=== PATIENT | female | born 1995 | race Caucasian/White ===

== ENCOUNTER 2021-11-28 11:21 | Emergency (ER) | payer OTHER ==
[~2021-11-28] VITALS: Ht 165.1 cm; Wt 79.4 kg
[2021-11-28 13:15] VITALS: BP 121/79
== END 2021-11-28 13:16 | disposition home or self-care (01) ==
LOC: ER 11:21
DX: M25.532 Pain in left wrist (principal); V49.49XA Driver injured in collision with other motor vehicles in traffic accident, initial encounter; Y93.I9 Activity, other involving external motion; Y92.413 State road as the place of occurrence of the external cause; Y99.8 Other external cause status